=== PATIENT | female | born 1945 | race Caucasian/White ===

== ENCOUNTER 2018-09-22 12:00 | Outpatient (RCR) | payer MEDICARE, OTHER, SELFPAY ==
--- NOTE | 2018-09-06 12:04 | HP.PTEVAL ---
Patient's Visit Information DARIEL FRANCISCO is a 72 year old F referred to Physical Therapy by Yani Monahan with a diagnosis of L hip pain. Date of Evaluation: 09/06/18 Physical Therapist: Wily Rowley, PT, - Visit Plan Frequency: 1x/Week Duration: 2 Weeks Plan: Issue HEP of L hip and core strengthening ex's - Subjective Subjective: Pt reports her L hip has been sore for over 2 years. Pt reports it all began when she was gardening and twisted on her hip. Pt reports she had xrays which revealed no sig findings. Pt reports what bothers her the most is sometimes when she walks, her L hip wants to give out on her. Pt reports that has not happened recently. No Hx of falls. Pt reports she has a lot of steps and she can negotiate them reciprocally. No T or N in L LE. Occasional sleep difficulty secondary to L hip pain. Pt also notes standing on uneven ground and gardening increases her pain. 6/10 pain at rest, 8/10 pain at worst. - Pain L hip Pain Intensity (Out of 10): 6 Pain Intensity Range: 8 - Objective Neuro: B LE sensation is WNL to light touch. B patellar reflex= 2/3. ROM: B hips are WNL at this time. MMT: L hip is grossly 4/5 and painful with most motions. R hip 5/5 throughout. Special testing: Pos quadrant test this date. Ambulation: Pt ambulates with mild limp of her L LE. - Goals Goal 1:: I with HEP 2-3 visits - Rehabilitation Potential Physical Therapy Diagnosis: L hip pain, weakness, and limitations with ambulation secondary to deg changes in L hip Rehabilitation Potential: Good - Anticipated Interventions Patient/Client Instruction: Educate patient on: Condition, Plan of Care For the Purpose of:: To improve self management Therapeutic Exercise to Include: Strength training, Endurance training, Dynamic Lumbar Stabilization For the Purpose of:: To decrease pain, To improve muscle performance and motor function Thank you for the opportunity to evaluate your patient. For Medicare and Medicare HMO plans, please review the plan of care and approve it. It will need to be FAXED BACK to us at [phone] for Medicare purposes. Please let me know if there are questions or concerns regarding this plan of care. Physician Signature: Date:
--- NOTE | 2018-11-10 08:28 | HP.PT.NRP ---
HP - Discharge Summary (1) - Patient Information DARIEL FRANCISCO was seen in my office for initial evaluation on 09/06/18. The following Plan of Care was established for this patient: Initial Frequency: 1x/Week Initial Duration: 2 Weeks - Anticipated Interventions Patient/Client Instruction: Educate patient on: Condition, Plan of Care For the Purpose of:: To improve self management Therapeutic Exercise to Include: Strength training, Endurance training, Dynamic Lumbar Stabilization For the Purpose of:: To decrease pain, To improve muscle performance and motor function This patient was last seen in our office . Pertinent comments regarding their Physical therapy will appear below: Pt was treated for 3 total PT visits to be educated on a HEP. Pt was I with her HEP on the date of 09/22/18 and has not returned since that date. Pt is discharged at this time with her treatment goal being achieved. At this point I will be discontinuing this patient from physical therapy. I would be happy to see this patient again in the future if found appropriate by the physician. Thank you! Wily Rowley, PT, ATC
== END 2018-09-22 19:00 | disposition home or self-care (01) ==
LOC: PT 12:00
PROVIDERS: Family Provider Family Medicine; PCP Family Medicine; Referring Provider Family Medicine; Visit Provider Family Medicine
DX: M25.552 Pain in left hip (principal); R53.1 Weakness
CPT/HCPCS: 97110; 97161